=== PATIENT | male | born 1970 | race American Indian/Alaskan Native ===

== ENCOUNTER 2024-01-20 20:56 | Emergency (ER) | payer OTHER, SELFPAY ==
[2024-01-20 21:00] VITALS: BP 143/69; PULSE 73; RESP 18; TEMP 36.7; O2SAT 97; BMI 36.5
== END 2024-01-21 00:33 | disposition left against medical advice (07) ==
PROVIDERS: Emergency Provider Internal Medicine
DX: M54.2 Cervicalgia (principal); R51.9 Headache, unspecified; Z53.21 Procedure and treatment not carried out due to patient leaving prior to being seen by health care provider
CPT/HCPCS: 99281